=== PATIENT | female | born 1945 | race Caucasian/White ===

== ENCOUNTER 2017-08-10 10:26 | Emergency (ER) | payer OTHER ==
[~2017-08-10] VITALS: Ht 157.5 cm; Wt 56.7 kg
[2017-08-10 11:45] LABS: ABSOLUTE BASOPHIL COUNT 0.1 /CUMM (0.0-0.2); ABSOLUTE EOSINOPHIL COUNT 0.1 /CUMM (0.0-0.7); ABSOLUTE GRANULOCYTE CT 5.6 /CUMM (1.4-6.5); ABSOLUTE LYMPH COUNT 0.6 /CUMM (1.2-3.4); ABSOLUTE MONOCYTE COUNT 0.6 /CUMM (0.10-0.60); BASOPHIL % 1.6 % (0.0-2.0); EOSINOPHIL % 1.2 % (0-5); GRANULOCYTE % 79.7 % (42.2-75.2); HEMATOCRIT 36.2 % (37-47); MEAN CORPUSCULAR HGB 35.3 PG (27.0-31.0); MEAN CORPUSCULAR HGB CONC 34.2 G/DL (33.0-37.0); MEAN CORPUSCULAR VOLUME 103.4 FL (81.0-99.0); MEAN PLATELET VOLUME 6.1 FL (7.4-10.4); PLATELET COUNT 401 /CUMM (130-400); RBC DISTRIBUTION WIDTH 13.7 % (11.5-14.5); RED BLOOD CELL CT 3.49 /CUMM (4.20-5.40)
[2017-08-10] MEDS ORDERED: METOPROLOL SUCC25 M1 PO (11:53)
[2017-08-10] MEDS ORDERED: MAGNESIUM OXID400 M1 PO (11:53)
[2017-08-10] MEDS ORDERED: HYDROCHLOROTHIA25 M1 PO (11:54)
[2017-08-10] MEDS ORDERED: SIMVASTATIN20 M2 PO (11:54)
[2017-08-10 12:01] LABS: PT 10.5 SEC (9.4-12.5); PTT 30 SEC (25-37)
--- NOTE | 2017-08-10 12:01 | ED GI/GU/ABDOMINAL COMPLAINT ---
History of Present Illness General Chief Complaint: Abdominal Pain/Flank Pain Stated Complaint: ABD PAIN Source: patient, family Exam Limitations: no limitations Vital Signs & Intake/Output Vital Signs & Intake/Output Vital Signs Date Time Temp Pulse Resp B/P B/P Pulse O2 O2 Flow FiO2 Mean Ox Delivery Rate 08/10 1607 98.6 79 16 133/71 100 Room Air 08/10 1340 98.3 80 18 142/60 100 Room Air 08/10 1154 Room Air 08/10 1043 97.8 76 18 132/88 98 Room Air Allergies Coded Allergies: Penicillins (Intermediate, HIVES 08/10/17) morphine (Intermediate, GI UPSET 08/10/17) Reconcile Medications Hydrochlorothiazide 25 MG TABLET 1 TAB PO DAILY WATER RETENTION (Reported) Magnesium Oxide 400 MG TABLET 1 TAB PO BID SUPPLEMENT (Reported) Metoprolol Succinate 25 MG TAB 1 TAB PO DAILY HEART (Reported) Simvastatin (Simvastatin*) 20 MG TABLET 1 TAB PO DAILY CHOLESTEROL (Reported) Triage Note: PT TO ER C/C EPIGASTRIC SHARP PAIN 3/10 SUDDEN ONSET AT 0900. PATIENT STATES PAIN WAS SEVERE. DENIES N/V/D. HX OF COLON CA WITH COLOSTOMY. DENIES KNOWN HX OF AAA. BP R ARM 154/90 BP L ARM 132/88 Triage Nurses Notes Reviewed? yes ? N Is pt currently ? No HPI: 72 yo F PMH HTN, HLD, Colon CA (s/p cololstomy) presenting wtih abdominal pain. Acute onset abdominal pain starting this morning, epigasrtic location, non- radiating, intermittent, waxing and waning intensity, severe when present, not related to food. Associated constipation with no ostomy output since yesterday evening. No associated fevers, chills, chest pain, palpitations, shortness of breath, nausea, vomiting, bloody ostomy output, headache, neck pain, or focal neurologic symptoms. History of colon cancer status post resection with placement of colostomy with , recent revision of colostomy the end of July, scheduled to see Dr. Haas on Wednesday. (Margaret BARRERA,José Miguel) Past History Travel History Traveled to [place] past 21 day No Medical History Any Pertinent Medical History? see below for history Cardiovascular: hypertension, hyperlipidemia Gastrointestinal: COLOSTOMY Cancer(s): COLON Surgical History Surgical History: colostomy Psychosocial History Who do you live with Spouse Services at Home None What is your primary language Nepali Tobacco Use: Quit >30 days ago Family History Family History, If Any: FATHER FH: heart disease MOTHER Valvular heart disease Hx Contributory? Yes (José Miguel Robles MD) Review of Systems Review of Systems Constitutional: Reports: no symptoms. EENTM: Reports: no symptoms. Respiratory: Reports: no symptoms. Cardiovascular: Reports: no symptoms. GI: Reports: abdominal pain, constipation, distention. Genitourinary: Reports: no symptoms. Musculoskeletal: Reports: no symptoms. Skin: Reports: no symptoms. Neurological/Psychological: Reports: no symptoms. Hematologic/Endocrine: Reports: no symptoms. Immunologic/Allergic: Reports: no symptoms. All Other Systems: Reviewed and Negative (José Miguel Robles MD) Physical Exam Physical Exam General Appearance: well developed/nourished, no apparent distress, alert, awake Head: atraumatic Ears, Nose, Throat, Mouth: moist mucous membrane Neck: normal inspection, full range of motion Respiratory: normal breath sounds Gastrointestinal: normal bowel sounds, soft Back: normal inspection Comments: Abdomen: Soft, mild distension, diffuse tenderness to palpation worst in the right lower quadrant, no rebound or guarding, ostomy in the left midabdomen Core Measures ACS in differential dx? No Sepsis Present: No Sepsis Focused Exam Completed? No (José Miguel Robles MD) Progress Differential Diagnosis: AAA, AMI, appendicitis, biliary colic, bowel obstruction , colon cancer, cholecystitis, diverticulitis, ectopic , endometritis, esophageal varices, gastritis, hepatitis, hernia, hemorrhoids, ischemic bowel, inflamm bowel dis, intrauterine , kidney stone, Mariangel-Fausto tear, ovarian cyst, ovarian torsion, pancreatitis, PID/cervicitis, peptic ulcer, PUD/ GERD, perforated viscous, SBO, threatened AB, UTI/pyelo Plan of Care: Orders Procedure Date/time Status CT ABD & PELVIS ANGIOGRAM 08/10 1204 Active TROPONIN LEVEL 08/10 1040 Complete PARTIAL THROMBOPLASTIN TIME 08/10 1040 Complete PROTHROMBIN TIME 08/10 1040 Complete LIPASE 08/10 1040 Complete LACTIC ACID 08/10 1040 Complete COMPREHENSIVE METABOLIC PANEL 08/10 1040 Complete CBC WITHOUT DIFFERENTIAL 08/10 1040 Complete EKG 08/10 1027 Active Laboratory Tests 08/10/17 1340: Lactic Acid Cancelled 08/10/17 1035: Anion Gap 17 H, Estimated GFR > 60, BUN/Creatinine Ratio 18.3, Glucose 93, Lactic Acid 1.2, Calcium 9.8, Total Bilirubin 0.5, AST 32, ALT 33, Alkaline Phosphatase 93, Troponin I < 0.01, Total Protein 7.6, Albumin 4.4, Globulin 3.2, Albumin/Globulin Ratio 1.4, Lipase 52, PT 10.5, INR 1.00, APTT 30, CBC w Diff NO MAN DIFF REQ, RBC 3.49 L, MCV 103.4 H, MCH 35.3 H, RDW 13.7, MPV 6.1 L, Gran % 79.7 H, Lymphocytes % 8.5 L, Monocytes % 9.0, Eosinophils % 1.2, Basophils % 1.6, Absolute Granulocytes 5.6, Absolute Lymphocytes 0.6 L, Absolute Monocytes 0.6, Absolute Eosinophils 0.1, Absolute Basophils 0.1, PUBS MCHC 34.2 Physician: 72 yo F PMH HTN, HLD, Colon CA (s/p cololstomy) presenting wtih abdominal pain. VSS, HR 90s, afebrile, abdominal exam as above. DDx: Colitis, pancreatitis, biliary pathology, SBO, aortic pathology, appendicitis. EKG sinus rhythm, nonischemic. CB C with thrombocytosis, no leukocytosis, normal hemoglobin. CMP unremarkable. CT abdomen/pelvis with evidence of small bowel obstruction. Called [facility], discussed with colorectal surgery (Dr. Lobato) , patient accepted for transfer to Dr. Haas's service for further management. Risks of transfer discussed with patient who consented. Direct transfer to [place] surgical floor. Initial ED EKG: NSR (Margaret BARRERA,José Miguel) Departure Departure Disposition: OTHER [facility] (ACUTE) Condition: Stable Clinical Impression Primary Impression: Small bowel obstruction Referrals: Rafal Manzo MD (PCP/Family) Departure Forms: Customer Survey General Discharge Information (Margaret BARRERA,José Miguel) Resident Co-Sign Statement Statement: ED Attending supervision documentation- [] I saw and evaluated the patient. I have also reviewed all the pertinent lab results and diagnostic results. I agree with the findings and the plan of care as documented in the Resident's documentation. [X] I have reviewed the ED Record and agree with the Resident's documentation. [] Additions or exceptions (if any) to the Resident's note and plan are summarized below: [] (Meeta BARRERA,Nicole)
[2017-08-10 16:07] VITALS: BP 133/71
--- NOTE | 2017-08-10 16:48 | CT SCAN REPORT ---
EXAMINATION: CTA OF THE ABDOMEN AND PELVIS INTERPRETING VASCULAR \T\ INTERVENTIONAL RADIOLOGIST: Augusta Kolb MD/PhD CLINICAL INFORMATION: Epigastric pain. Shortness of breath. TECHNIQUE: Multiple axial images were obtained through the abdomen and pelvis using a [address] scan. 95 mL of Optiray 350 was administered intravenously. Images were evaluated on independent dedicated 3-D workstation and 3-D images were reconstructed with concurrent radiologist supervision and subsequently interpreted. COMPARISON: None. DLP: 468.99 mGy-cm FINDINGS: VASCULAR: Mesenteric arteries: Minimal narrowing at the celiac axis due to noncalcified atherosclerotic disease. All branch vessels normally opacify with contrast. The superior mesenteric artery and inferior mesenteric artery are patent. Renal arteries: 2 right renal arteries are patent. Single left renal artery is patent. Abdominal aorta: No evidence of aneurysm, dissection or stenosis. No significant atherosclerotic disease. Iliac arteries: Very minimal atherosclerotic disease of the right common iliac artery and common femoral arteries without evidence of aneurysm, dissection or flow-limiting stenosis. NONVASCULAR: Cafe Associate: Dilated loops of small bowel in the left hemiabdomen. Pelvic calcifications. Degenerative changes of the spine and hips. Lung Bases: Unremarkable. Liver, Gallbladder, and Biliary Tree: The liver is normal in size, shape, and attenuation. No focal hepatic lesion or biliary ductal dilatation is present. The gallbladder is decompressed. There are hyperdense gallstones seen layering dependently within the gallbladder. No gallbladder wall thickening or pericholecystic inflammatory change or fluid. Pancreas: Marked pancreatic atrophy. No focal pancreatic abnormalities. Spleen: Unremarkable. Adrenal Glands: Unremarkable. Kidneys and Ureters: The kidneys are normal in size, shape, and attenuation. No hydronephrosis, hydroureter, or calculi seen. No perinephric stranding. Mild symmetric cortical thinning. Bladder: The bladder is underdistended with moderate circumferential wall thickening without focal wall abnormality. Gastrointestinal Tract: The patient is status post partial colectomy with left lower quadrant colostomy formation. There has also been segmental colonic resection in the area of the transverse colon. There are dilated loops of small bowel involving the left hemiabdomen with a transition point within the left hemiabdomen, closely adjacent to the loop of bowel involved in the left lower quadrant colostomy. There is an area of stricturing of the small bowel involved with the obstruction, however the bowel is dilated on both sides of the stricture. There are areas of hyperdensity within the fluid-filled loops of distended small bowel which may represent fecal material versus small bowel polyps. In the presacral space there is ill-defined amorphous soft tissue that is heterogeneous in attenuation and also contains air bubbles. There is a central region of hypodensity with an ill-defined wall which may represent phlegmon, however evaluation is limited due to the arterial phase of the imaging and lack of contrast within the rectum. Abdominal Wall: Right abdominal wall hernia through the rectus abdominis muscle containing a nonobstructed loop of small bowel. Lymph Nodes: No lymphadenopathy within the abdomen or pelvis by CT criteria. Pelvic Viscera: Unremarkable. Osseous Structures: Severe degenerative changes of the spine. Mild to moderate degenerative changes of the hips. No acute or suspicious osseous abnormality. IMPRESSION: 1. Small bowel obstruction with transition point in the left hemiabdomen most suspicious for mechanical obstruction due to adhesion. 2. Hyperdense material is seen within the small bowel loops involved with the obstruction which may represent fecal material versus small bowel polyps. There are areas of hyperenhancement of the small bowel mucosa also involved with the small bowel obstruction which are of uncertain clinical significance. 3. Ill-defined amorphous soft tissue within the presacral space containing air bubbles as well as a centrally hypoattenuating region suggestive of possible phlegmon or fluid collection. Evaluation of this region is limited without luminal contrast in the rectum as well as without venous phase imaging. 4. The patient is status post multiple surgical resections of the bowel with left lower quadrant colostomy. 5. Cholelithiasis without CT evidence of cholecystitis. 6. Small right abdominal wall hernia containing nonobstructed small bowel loop. 7. No evidence of abdominal aortic aneurysm. The mesenteric arteries and celiac axis are patent. This critical result was discussed with José Miguel Robles at 1:50 PM on 08/10/2017 and it was ascertained that the content and urgency of the report was understood at the time of direct communication.
== END 2017-08-10 16:22 | disposition short-term general hospital (02) ==
LOC: ERH 10:26
PROVIDERS: Emergency Medicine
DX: K56.609 Unspecified intestinal obstruction, unspecified as to partial versus complete obstruction (principal)
CPT/HCPCS: 74174; 93005; 93010; 96374; 96375; J2405